=== PATIENT | female | born 1955 | race Two or more races ===

== ENCOUNTER → 2024-02-15 | Outpatient (CLI) | payer MEDICARE, MEDICAID, SELFPAY ==
--- NOTE | 2024-02-15 09:45 | XR_ITS ---
Examination: Breast ultrasound, unilateral, right complete Date and time of exam: February 15, 2024 0915 hours INDICATIONS: Right breast sonogram May 15, 2023 12:00 nodule 14 x 12 mm Technique: Real-time wooten scale ultrasonographic imaging performed right breast including all 4 quadrants as well as nipple retroareolar and axillary region. Findings: 12:00 nodule 15 x 6 x 10 mm, circumscribed IMPRESSION: BI-RADS Category 3: Probably benign findings One additional 6 month right breast sonogram follow-up is needed to document continued stability of 12:00 nodule described above
== END | disposition home or self-care (01) ==
PROVIDERS: PCP Physician Assistant; Referring Provider Physician Assistant; Visit Provider Physician Assistant
DX: N63.15 Unspecified lump in the right breast, overlapping quadrants (principal)
CPT/HCPCS: 76641